=== PATIENT | male | born 1970 | race Caucasian/White ===

== ENCOUNTER → 2019-11-21 | Day surgery (SDC) | payer OTHER ==
[~2019-11-21] MED LIST: BUPIVACAINE HCL 0.5% INJ 30 ML VIAL INJ ONE; CEFAZOLIN SOD 1 GM/NS 50ML 50 ML IV ONE; FENTANYL CITRATE/PF 100MCG/2 ML INJ ONE; IBUPROFEN400 MG PO; KETOROLAC TROMETHAMINE 30 MG/ML VIAL ONE; LIDOCAINE HCL 2% LOCAL INJ 5 ML SDV VIAL INJ ONE; MORPHINE SULFATE INJ 10 MG/ML ONE; MUPIROCIN 2% OINT 22 GM TUBE ONE; ONDANSETRON HCL INJ 2MG/ML 2ML 2 MG/ML VIAL ONE; PROPOFOL IV EMULSION 10 MG/ML 20 ML VIAL ONE; SEVOFLURANE INHAL SOLN 250 ML PEN BTL ONE
[2019-11-21 11:40] VITALS: BP 124/88
--- NOTE | 2019-11-21 14:06 | Operative Report ---
DATE OF PROCEDURE: 11/21/2019 SURGEON: Rob Weems MD PREOPERATIVE DIAGNOSES: 1. Fracture of left little finger, proximal phalanx intra-articular, nondisplaced. 2. 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 POSTOPERATIVE DIAGNOSES: 1. Fracture of left little finger, proximal phalanx intra-articular, nondisplaced. 2. 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 PROCEDURES: 1. Excision of benign bone tumor proximal phalanx, left little finger. 2. Closed treatment of left little finger proximal phalanx fracture, intra-articular. 3. Excision of enchondroma, left little finger proximal phalanx with allograft bone and then closed treatment of the proximal phalanx fracture. ANESTHESIA: General. HISTORY: The patient is a 49-year-old [place] male, who several weeks ago noticed pain in his left little finger after a small injury. The patient went to an Urgent [facility] Center and radiographs were performed, which revealed the presence of a pathologic fracture and a bone tumor. The patient was seen in my office and was diagnosed with an enchondroma with pathologic fracture. The risks, benefits, and alternatives of treatment were discussed with the patient and he is prepared to undergo the procedure as outlined. PROCEDURE IN DETAIL: The patient was marked preoperatively in the holding area. He was brought to the operating theater and after the induction of adequate general anesthesia, he was prepped and draped in a supine position and a time-out was performed. A C-arm fluoroscope was brought in to verify the enchondroma and the presence of the pathologic fracture and knows a significant interval change and the displacement of the fracture has occurred. A curvilinear incision was marked out over the left little finger from just proximal to the MP joint to the level of the PIP joint. The left upper extremity was exsanguinated and the tourniquet was inflated to a pressure of 250 mmHg. The incision was made through the skin and the subcutaneous tissues and venous tributaries were controlled with bipolar cautery. The extensor mechanism was identified and then it was incised sagittally from the level of the PIP joint to the level of the MP joint. The extensor tendon mechanism was then reflected off the periosteal tissues. Subperiosteal dissection was performed by incising the periosteum longitudinally and using a [place] elevator to elevate the periosteal tissues off the proximal phalanx to the level of the MP joint. Fluoroscopic guidance was used at this point, to show the proximal level of the cyst as well as the distal extent of the cyst as well. Penetration into the dorsal cortex was done using a mallet and an osteotome, and then the window of the dorsal cortex was then removed and saved for further use. At this point, the cyst was then curetted out, getting the typical cartilage matrix of an enchondroma. This area was curetted down until just the cortical bone and no further enchondroma material was noted. All of this material was then sent for permanent pathologic examination. The defect was copiously irrigated and fluoroscopy was utilized ensuring total enchondroma removal and checking the margins with the curette. At this point, allograft bone croutons were morcellized into small pieces and mixed with demineralized allograft bone, this slowly was then packed into the defect compressing it with the back of the curette and tamped into place until the packing was noted to be as dense as possible. The fluoroscope was brought in and verification at the entire space had been packed, was done and at this point, the dorsal cortex bone window was replaced. The periosteum was then repaired over the defect utilizing 4-0 Vicryl sutures in an interrupted fashion. The wound was irrigated with bacteriostatic saline and then the tendon was repaired using 4-0 Vicryl in an interrupted fashion as well. The wound was irrigated once again and the skin was approximated with 5-0 nylon in interrupted horizontal mattress fashion. A Marcaine field block was performed at the operative site. The tourniquet was deflated. All the fingers pinked up nicely and incision was noted to be hemostatic. Bactroban ointment, Xeroform gauze, and a sterile dressing were applied. An ulnar gutter splint was fashioned and held in place with a loosely wrapped [place] wrap. The patient tolerated the procedure well and was brought to recovery room in satisfactory condition and discharged with a postoperative instruction sheet as well as a followup appointment. MD POWER Reis/MODL /[id number]
== END | disposition home or self-care (01) ==
LOC: OR 06:59
PROVIDERS: ATTEND Plastic Surgery
DX: D16.12 Benign neoplasm of short bones of left upper limb (principal); M84.445A Pathological fracture, left finger(s), initial encounter for fracture; Z01.810 Encounter for preprocedural cardiovascular examination; Z01.812 Encounter for preprocedural laboratory examination; Z11.59 Encounter for screening for other viral diseases
CPT/HCPCS: 26215; 88305; 88311; 93005; C1713 ×2; J0690; J1885; J2001; J2270; J2405; J2704; J3010; U0002; 88302

== ENCOUNTER → 2020-02-12 | Outpatient (RCR) | payer OTHER ==
[~2020-02-12] MED LIST changes: -BUPIVACAINE HCL 0.5% INJ 30 ML VIAL INJ ONE; -CEFAZOLIN SOD 1 GM/NS 50ML 50 ML IV ONE; -FENTANYL CITRATE/PF 100MCG/2 ML INJ ONE; -KETOROLAC TROMETHAMINE 30 MG/ML VIAL ONE; -LIDOCAINE HCL 2% LOCAL INJ 5 ML SDV VIAL INJ ONE; -MORPHINE SULFATE INJ 10 MG/ML ONE; -MUPIROCIN 2% OINT 22 GM TUBE ONE; -ONDANSETRON HCL INJ 2MG/ML 2ML 2 MG/ML VIAL ONE; -PROPOFOL IV EMULSION 10 MG/ML 20 ML VIAL ONE; -SEVOFLURANE INHAL SOLN 250 ML PEN BTL ONE
== END ==
LOC: OT 02-04 09:52
PROVIDERS: ATTEND Plastic Surgery
DX: S62.647D Nondisplaced fracture of proximal phalanx of left little finger, subsequent encounter for fracture with routine healing (principal); M79.642 Pain in left hand; M25.642 Stiffness of left hand, not elsewhere classified; R53.1 Weakness

== ENCOUNTER 2020-02-26 08:00 | Outpatient (RCR) | payer OTHER | END 2020-03-14 | LOC: OT 08:00 | PROVIDERS: ATTEND Plastic Surgery | DX: D16.12 Benign neoplasm of short bones of left upper limb (principal); S62.647D Nondisplaced fracture of proximal phalanx of left little finger, subsequent encounter for fracture with routine healing; M79.642 Pain in left hand; M25.642 Stiffness of left hand, not elsewhere classified; R53.1 Weakness ==